=== PATIENT | male | born 2000 | race Two or more races ===

== ENCOUNTER 2020-08-20 12:50 | Emergency (ER) | payer MEDICAID, OTHER, SELFPAY ==
[~2020-08-20] VITALS: Ht 165.1 cm; Wt 94.5 kg
--- NOTE | 2020-08-20 13:27 | NUR ---
PATIENT WALKED BACK FROM TRIAGE WITH CHIEF C/O RIGHT FACIAL NUMBNESS SINCE THIS MORNING. PATIENT REPORTS HIS RIGHT EYE WAS "IRRITATED" YESTERDAY. PATIENT DENIES CHANGES IN SPEECH OR VISION. NO OTHER NEURO SYMPTOMS REPORTED. NADN, CONNECTED TO MONITOR, VSS, FRIEND AT BEDSIDE, CALL LIGHT WITHIN REACH.
--- NOTE | 2020-08-20 13:42 | NUR ---
ERMD AT BEDSIDE FOR EVALUATION.
[2020-08-20 14:39] VITALS: BP 121/74
--- NOTE | 2020-08-20 14:56 | NUR ---
Patient given discharge instructions and prescriptions and they have confirmed that they understand the instructions. Patient ambulatory with steady gait. NAD, all questions answered appropriately, denies additional needs at this time. No personal belongings left in room after discharge.
== END 2020-08-20 14:57 | disposition home or self-care (01) ==
LOC: ED 14:51
DX: G51.0 Bell's palsy (principal); R94.31 Abnormal electrocardiogram [ECG] [EKG]
CPT/HCPCS: 70450; 93005; 99284